=== PATIENT | male | born 1965 | race Caucasian/White ===

== ENCOUNTER 2019-11-09 18:28 | Emergency (ER) | payer SELFPAY ==
[~2019-11-09] VITALS: Ht 170.1 cm; Wt 61.7 kg
[2019-11-09 18:34] VITALS: BP 134/88
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
[2019-11-09] MEDS ORDERED: DICL75TA2 PO (18:58)
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
--- OUTSIDE RECORDS SUMMARY | 2019-11-10 00:19 | XMS REPORT | Continuity of Care Document ---
Author Organization Unknown Address Unknown Phone Unavailable Allergies Active Description Code Type Severity Reaction Onset Reported/Identified Relationship to Patient Clinical Status Yes Penicillins [id number] Drug Aller gy Unknown N/A 11/09/2019 Medications There is no data. Problems There is no data. Procedures There is no data. Results There is no data. Encounters ACCT No. Visit Date/Time Discharge Status Pt. Type Provider Facility Loc./Unit Complaint [id number] 11/09/2019 18:29:00 020 19:10:00 DIS Emergency YONI NORTON, DAVID Wol[facility] ER FS FELL,WRIST INJ
== END 2019-11-09 19:10 | disposition home or self-care (01) ==
LOC: ER FS 18:29
DX: S52.502A Unspecified fracture of the lower end of left radius, initial encounter for closed fracture (principal); Z88.0 Allergy status to penicillin; V18.4XXA Pedal cycle driver injured in noncollision transport accident in traffic accident, initial encounter
CPT/HCPCS: 29125; 73110

== ENCOUNTER → 2019-11-21 | Outpatient (CLI) | payer SELFPAY ==
[~2019-11-21] MED LIST: DICL75TA2 PO
--- NOTE | 2019-11-21 10:58 | Diagnostic Imaging Report ---
INDICATION: Follow-up left radius fracture. TIME OF EXAM: 10:47 a.m. COMPARISON: Correlation is made with prior radiograph from 11/09/2019. FINDINGS: Overlying fiberglass cast material obscures bone detail. Fracture of the distal radius with intra-articular extension is again noted. Fracture lines do remain probably visible, although study is compromised due to overlying cast material. Alignment appears to be anatomic. The distal ulna is obscured. Carpus and metacarpals are intact. IMPRESSION: Distal radius intra-articular fracture. The fracture line does remain clearly visible but alignment is anatomic. Dictated by: Dictated on workstation # [id number]
== END ==
LOC: RAD FS 10:38
PROVIDERS: ATTEND Nurse Practitioner
DX: S52.572D Other intraarticular fracture of lower end of left radius, subsequent encounter for closed fracture with routine healing (principal)
CPT/HCPCS: 73110

== ENCOUNTER → 2019-12-06 | Outpatient (CLI) | payer SELFPAY ==
--- NOTE | 2019-12-06 14:55 | Diagnostic Imaging Report ---
INDICATION: Fracture, followup. TECHNIQUE: Three views of the left wrist were performed. CORRELATION STUDY: 11/21/2019 and 11/09/2019. FINDINGS: Cast material has been removed. The comminuted impacted intraarticular distal left radius fracture is noted. Some outward displacement of the major fracture lines is noted. The overall alignment is generally stable. Fracture lines, however, are still well visualized with very little (if any) interval healing from the baseline study. The distal ulna fracture does appear to be at least partially healed. The carpal bones are otherwise unremarkable but with mild degenerative change present. IMPRESSION: 1. Very little (if any) interval healing about the intraarticular comminuted impacted distal left radius fracture. Fracture lines are still well visualized. 2. Some blurring of the previously noted nondisplaced distal ulna fracture. Dictated by: Dictated on workstation # [id number]
== END ==
LOC: RAD FS 14:10
PROVIDERS: ATTEND Nurse Practitioner
DX: S52.572D Other intraarticular fracture of lower end of left radius, subsequent encounter for closed fracture with routine healing (principal); X58.XXXD Exposure to other specified factors, subsequent encounter
CPT/HCPCS: 73110

== ENCOUNTER → 2019-12-20 | Outpatient (CLI) | payer SELFPAY ==
--- NOTE | 2019-12-20 15:34 | Diagnostic Imaging Report ---
INDICATION: Follow-up fracture. COMPARISON: 12/06/2019. FINDINGS: Frontal and lateral radiographic views of the left wrist were obtained status post placement of radiopaque cast material. As result, there is mild obscuration of underlying osseous structures. Nonacute comminuted fracture of the distal radius is again identified. There may be some early sclerotic healing about the fracture sites. Note is made of mild widened appearance of the scapholunate joint space. No unexpected radiopaque foreign bodies are seen. Joint spaces are otherwise maintained. IMPRESSION: 1. Redemonstration of distal ulnar fracture as above. 2. Slight widened appearance of the scapholunate joint space suspicious for underlying ligamentous injury. Dictated by: Dictated on workstation # [id number]
== END ==
LOC: RAD FS 14:48
PROVIDERS: ATTEND Nurse Practitioner
DX: S52.572D Other intraarticular fracture of lower end of left radius, subsequent encounter for closed fracture with routine healing (principal); X58.XXXD Exposure to other specified factors, subsequent encounter
CPT/HCPCS: 73100

== ENCOUNTER → 2020-01-17 | Outpatient (CLI) | payer SELFPAY ==
--- NOTE | 2020-01-17 15:00 | Diagnostic Imaging Report ---
INDICATION: Fracture follow-up. COMPARISON: 12/20/2019. FINDINGS: Three radiographic views of the left wrist were obtained. There has been interval removal of previously placed radiopaque cast material. Nonacute nondisplaced intra-articular fracture of the distal radius is again identified. Fracture line remains conspicuous. There is no significant bridging callus formation or periosteal reaction. No unexpected radiopaque foreign bodies are seen. Joint spaces are maintained. IMPRESSION: 1. Redemonstration of distal radius fracture as described above. Dictated by: Dictated on workstation # [id number]
== END ==
LOC: RAD FS 14:29
PROVIDERS: ATTEND Nurse Practitioner
DX: S52.572D Other intraarticular fracture of lower end of left radius, subsequent encounter for closed fracture with routine healing (principal)
CPT/HCPCS: 73110

== ENCOUNTER 2020-12-30 17:18 | Emergency (ER) | payer SELFPAY ==
[~2020-12-30] VITALS: Ht 170.2 cm; Wt 61.2 kg
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
[2020-12-30] MEDS ORDERED: fentaNYL INJ 100 MCG/2 ML AMP IVP STA (17:23)
[2020-12-30] MEDS ORDERED: IOHEXOL 350 MG/ML 100 ML (OMNIPAQUE 350) VIAL IV ONE (17:45)
[2020-12-30] MEDS ORDERED: HOLD METFORMIN - RECEIVED CONTRAST 20 ML VIAL IV SCH (17:45)
[2020-12-30] MEDS ORDERED: NS 100 ML (IVPB) BAG IV ONE (17:45)
[2020-12-30] MEDS ORDERED: CATHETER FLUSH 10 ML SYR IV PRN (17:45)
[2020-12-30 17:53] LABS: HEMATOCRIT 35 % (40-54); HEMOGLOBIN 11.9 G/DL (13.3-17.7); MEAN CORPUSCULAR HEMOGLOBIN 33 PG (25-34); MEAN CORPUSCULAR HGB CONC 34 G/DL (32-36); MEAN CORPUSCULAR VOLUME 95 FL (80-99); MEAN PLATELET VOLUME 9.9 FL (7.4-10.4); PLATELET COUNT 263 10^3/uL (130-400); WHITE BLOOD COUNT 8.2 10^3/uL (4.3-11.0)
[2020-12-30 18:12] LABS: CALCIUM 8.5 MG/DL (8.5-10.1); CREATININE SERUM 1.05 MG/DL (0.60-1.30)
--- NOTE | 2020-12-30 18:33 | Diagnostic Imaging Report ---
EXAMINATION: Pelvis, single view. Right hip, 2 additional views. COMPARISON: None. HISTORY: 55-year-old male, injury. Pelvic and hip pain. FINDINGS: There are high attenuation nodular foci projecting over the midline lower abdomen and pelvis on the initial view which may be external to the patient. This is not present on subsequent imaging. The right hip is not dislocated. There is no joint space loss of the right hip. There is no identified acute fracture. The left hip is not obviously dislocated. There are disc degenerative changes at L4-L5 and L5-S1. IMPRESSION: 1. No identified acute bony abnormality of the pelvis or right hip. 2. Degenerative changes of the lower lumbar spine. Dictated by: Dictated on workstation # [id number]
--- NOTE | 2020-12-30 18:59 | Diagnostic Imaging Report ---
Exam: CT angiography pelvis with intravenous contrast. Date: December 30, 2020. Indication: 55-year-old male, right hip and inguinal pain. Comparison: Radiographs December 30, 2020. Findings: The right common iliac artery is patent. The right external iliac artery is patent. The right common femoral artery is patent. The right superficial femoral artery is patent. The right deep femoral artery is patent. There is extensive abnormal attenuation in the right inguinal region and along the course of the right external iliac artery in particular as well as the right anterior and medial thigh most likely relating to extensive hematoma. There is a contrast opacified vessel within the hematoma in the right inguinal region on axial image 76 which is anterior to the level of the right, and femoral artery and is concerning for active extravasation of contrast. There is mass effect on the urinary bladder relating to the hematoma. There is no identified acute fracture or abnormal bone alignment. There are advanced disc degenerative changes at L4-L5 and L5-S1. Impression: 1. Large ill-defined hematoma centered along the distribution of the right external iliac artery, right inguinal region, and right anterior and medial thigh. There is a contrast opacified vessel anterior to the right common femoral artery and right inguinal region concerning for active extravasation of contrast. No acute osseous abnormality. Dictated by: Dictated on workstation # [id number]
[2020-12-30 20:16] VITALS: BP 132/68
== END 2020-12-30 20:16 | disposition short-term general hospital (02) ==
LOC: EDUNIT# 17:18 → ER FS 17:20
DX: S70.11XA Contusion of right thigh, initial encounter (principal); S75.9 Injury of unspecified blood vessel at hip and thigh level; I10 Essential (primary) hypertension; V19.9XXA Pedal cyclist (driver) (passenger) injured in unspecified traffic accident, initial encounter
CPT/HCPCS: 36415; 72191; 73502; 80048; 85027; 99291

== ENCOUNTER 2021-01-22 18:35 | Inpatient (IN) | payer SELFPAY ==
[~2021-01-22] VITALS: Ht 170.1 cm; Wt 63.5 kg
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
[2021-01-22] MEDS ORDERED: CATHETER FLUSH 10 ML SYR IV PRN (19:00)
[2021-01-22] MEDS ORDERED: NS 100 ML (IVPB) BAG IV ONE (19:00)
[2021-01-22] MEDS ORDERED: HOLD METFORMIN - RECEIVED CONTRAST 20 ML VIAL IV SCH (19:00)
[2021-01-22] MEDS ORDERED: IOHEXOL 350 MG/ML 100 ML (OMNIPAQUE 350) VIAL IV ONE (19:00)
[2021-01-22 19:01] LABS: BASOPHILS % (AUTO) 0 % (0-10); EOSINOPHILS % (AUTO) 0 % (0-10); HEMATOCRIT 43 % (40-54); LYMPHOCYTES % (AUTO) 10 % (12-44); MEAN CORPUSCULAR HEMOGLOBIN 33 PG (25-34); MEAN CORPUSCULAR HGB CONC 35 G/DL (32-36); MEAN CORPUSCULAR VOLUME 95 FL (80-99); MEAN PLATELET VOLUME 9.3 FL (7.4-10.4); MONOCYTES % (AUTO) 8 % (0-12); NEUTROPHILS % (AUTO) 82 % (42-75); PLATELET COUNT 402 10^3/uL (130-400); WHITE BLOOD COUNT 14.7 10^3/uL (4.3-11.0)
[2021-01-22 19:02] LABS: BASOPHILS # (AUTO) 0.1 10^3/uL (0.0-0.1); LYMPHOCYTES # (AUTO) 1.4 X 10^3 (1.0-4.0); MONOCYTES # (AUTO) 1.1 X 10^3 (0.0-1.0)
[2021-01-22 19:04] LABS: BILIRUBIN,URINE NEGATIVE (NEGATIVE); CLARITY,URINE CLEAR; COLOR,URINE YELLOW; GLUCOSE, URINE (UA) NEGATIVE (NEGATIVE); KETONES,URINE NEGATIVE (NEGATIVE); NITRITE,URINE NEGATIVE (NEGATIVE); PROTEIN,URINE NEGATIVE (NEGATIVE)
[2021-01-22 19:05] LABS: BACTERIA,URINE NEGATIVE /HPF; LEUKOCYTE ESTERASE ,URINE NEGATIVE (NEGATIVE); SQUAMOUS EPITHELIAL CELL,UR 0-2 /HPF; WBC,URINE 0-2 /HPF
[2021-01-22 19:13] LABS: ALBUMIN 4.4 GM/DL (3.2-4.5); BILIRUBIN,TOTAL 0.7 MG/DL (0.1-1.0); CALCIUM 9.9 MG/DL (8.5-10.1); CREATININE SERUM 0.94 MG/DL (0.60-1.30); POTASSIUM 4.6 MMOL/L (3.6-5.0); TOTAL PROTEIN 7.8 GM/DL (6.4-8.2)
--- NOTE | 2021-01-22 19:29 | Diagnostic Imaging Report ---
PROCEDURE: CT abdomen and pelvis with contrast. TECHNIQUE: Multiple contiguous axial images were obtained through the abdomen and pelvis after administration of intravenous contrast. Auto Exposure Controls were utilized during the CT exam to meet ALARA standards for radiation dose reduction. All CT scans use one or more of the following dose optimizing techniques: automated exposure control, MA and/or KvP adjustment based on patient size and exam type or iterative reconstruction. INDICATION: Left lower quadrant pain. The lung bases are clear. There is an area of ill-defined low density in the inferior right lobe of the liver approximately 13 mm in size, indeterminate. Gallbladder is unremarkable. There is no biliary duct dilatation. Pancreas and spleen are unremarkable. No adrenal mass is detected. Kidneys are unremarkable. Aorta is nonaneurysmal. Bowel loops are normal in caliber. There is significant wall thickening and surrounding inflammation near the junction of the descending colon and sigmoid. Features are consistent with either nonspecific colitis or perhaps diverticulitis. There are small gas bubbles which may be extraluminal at the level of the distal descending colon and an area of microperforation cannot be excluded. There is no fluid collection or bowel obstruction seen. There is moderate stool in the colon and rectum. Small bowel is normal in caliber. Bladder and prostate are unremarkable. There is a fluid collection in the right groin at the level of the right common femoral artery measuring approximately 7.7 x 2.3 cm. This is consistent with a seroma from patient's prior right groin hemorrhage in December. Hematoma previously noted has nearly completely resolved. Bony structures are nonacute. IMPRESSION: 1. Findings consistent with nonspecific colitis/diverticulitis in the left lower quadrant with probable microperforation. No abscess formation or bowel obstruction is seen. 2. Significant improvement in previously noted right groin and retroperitoneal hemorrhage in December. There is probable seroma now noted in the right groin. Dictated by: Dictated on workstation # [id number]
[2021-01-22] MEDS ORDERED: metroNIDAZOLE 500MG/100ML IVPB 100 ML IV ONE (19:45)
[2021-01-22] MEDS ORDERED: NS IV 1000 ML 1,000 ML IV SCH (19:45)
[2021-01-22] MEDS ORDERED: morphine INJ 10 MG/ML 1ML (SYR OR VIAL) IVP STA (20:53)
[2021-01-22] MEDS ORDERED: ONDANSETRON 4 MG/2 ML (SDV) Z0FRAN IVP ONE (21:00)
[2021-01-22 21:11] LABS: AMPHETAMINE SCREEN, URINE POSITIVE (NEGATIVE); BARBITURATE SCREEN URINE NEGATIVE (NEGATIVE); BENZODIAZEPINES SCREEN URINE NEGATIVE (NEGATIVE); CANNABINOID SCREEN, URINE POSITIVE (NEGATIVE); COCAINE SCREEN URINE NEGATIVE (NEGATIVE); METHADONE STAT NEGATIVE (NEGATIVE); METHAMPHETAMINE SCREEN URINE S POSITIVE (NEGATIVE); OPIATE SCREEN URINE POSITIVE (NEGATIVE); OXYCODONE STAT NEGATIVE (NEGATIVE); PROPOXYPHENE STAT NEGATIVE (NEGATIVE); TRICYCLIC ANTIDEPRESSANTS SCRE NEGATIVE (NEGATIVE)
[2021-01-22 22:00] VITALS: BP 161/98
[2021-01-22] MEDS: NS IV 1000 ML 1,000 ML IV SCH (23:23)
[2021-01-23] VITALS: BP 156/99
[2021-01-23] MEDS: morphine INJ 4 MG/ML 1 ML (VIAL/SYRINGE) IVP PRN ×4 (01:30→23:34)
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
--- OUTSIDE RECORDS SUMMARY | 2021-01-23 02:19 | XMS REPORT | Encounter Summary ---
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 [facility] MCV 95.4 80 - 100 FL [facility] MCH 33.8 26 - 34 PG [facility] MCHC 35.4 32.0 - 36.0 G/DL [facility] RDW 12.8 11 - 15 % [facility] Platelet Count 221 150 - 400 K/UL [facility] MPV 8.2 7 - 11 FL [facility] Specimen Blood Performing Organization Address City/[facility] P gianni Number [facility] [address] [place] [address] documented in this encounter Visit Diagnoses Diagnosis Pelvic hematoma, male - Primary 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 Arterial hemorrhage Closed fracture of left hand, initial e ncounter documented in this encounter Admitting Diagnoses Diagnosis Pelvic hematoma, male 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 12/31/2020 9:41 AM CDT 40 mg atorvastatin (LIPITOR) tablet 40 mg Given 40 mg, Oral, DAILY, First dose on Thu12/31/20 at 0900, Until Discontinued 12/31/2020 9:41 AM CDT 40 mg citalopram (CeleXA) tablet 40 mg Given 40 mg, Oral, DAILY, First dose on Thu12/31/20 at 0900, Until Discontinued 12/31/2020 9:44 AM CDT 100 mg docusate (COLACE) capsule 100 mg Given 100 mg, Oral, TWICE DAILY, First dose o n Thu12/31/20 at 0915, Until Discontinued , Hold for loose stools enoxaparin (LOVENOX) syringe 40 mg 40 mg, Subcutaneous, DAILY, First dose on Thu12/31/20 at 2100, Until Discontinued, For patients undergoing surgery: Consult physician in advance - - enoxaparin is an anticoagulant and may need to be held for 12hr prior to surgery or invasive procedures. NOTE: This is a HIGH ALERT Medication. 12/31/2020 1:26 AM CDT 10 mg oxyCODONE (ROXICODONE) tablet 5-10 mg Given 5-10 mg, Oral, EVERY 4 HOURS PRN, Starting on Thu12/31/20 at 0106, Until Thu12/31/20 at 1702, Pain PO polyethylene glycol 3350 (MIRALAX) packet 17 g 17 g (1 packet), Oral, DAILY, First dos e on Thu12/31/20 at 1015, Until Discontinued, 8.5 GRAMS = 0.5 PACKET 17 GRAMS = 1 PACKET 34 GRAMS = 2 PACKETS 12/31/2020 5:57 AM CDT 30 mEq potassium chloride SR (K-DUR) tablet 30 Given mEq 30 mEq, Oral, ONCE, 1 dose, On Thu12/31/20 at 0515, - Tablet may be dispersed in water. Place tab in 30 mL of water for 40-60 seconds. - Gently swirl until fully dispersed. If particles remain after admin, add small amount of water and admin remaining content. - DO NOT CRUSH. Tablet may be split in half. Give with meal or full glass of water documented in this encounter Discontinued Medications Start Date End Date Medication Sig Discontinue Reason 12/31/2020 12/31/2020 oxyCODONE (ROXICODONE) 5 Take one mg tablet tablet by mouth every 6 hours as needed for up to 5 days documented as of this encounter Historical Medications * This list may reflect changes made after this encounter. Start Date End Date Medication Sig Dispensed Refills traZODone (DESYREL) 150 Take 150 mg 0 mg tabletIndications: by mouth at insomnia associated with bedtime as depression needed. Indications: insomnia associated with depression atorvastatin (LIPITOR) 40 Take 40 mg by 0 mg tabletIndications: mouth daily. hypertriglyceridemia Indications: high amount of triglyceride in the blood citalopram (CELEXA) 40 mg Take 40 mg by 0 tabletIndications: mouth daily. anxiety with depression Indications: anxiousness associated with depression added in this encounter Active and Recently Administered Medications Times are shown in CDT. 12/30/2020 12/31/2020 Medication Order 12/29/2020 0126 (Given - Provider: Summer Schwarz RN)0940 (Given - Provider: Kelsie Hussein RN)1400 (Due) acetaminophen (TYLENOL) tablet 650 mg 650 mg, Oral, EVERY 6 HOURS, First dos e on Thu12/31/20 at 0200, Until Discontinued, TOTAL ACETAMINOPHEN DOSE NOT TO EXCEED 4GM DAILY 940 (Given - Provider: Kelsie Hussein, RAY ) atorvastatin (LIPITOR) tablet 40 mg 40 mg, Oral, DAILY, First dose on Thu12/31/20 at 0900, Until Discontinued 940 (Given - Provider: Kelsie Hussein, RAY ) citalopram (CeleXA) tablet 40 mg 40 mg, Oral, DAILY, First dose on Thu12/31/20 at 0900, Until Discontinued 44 (Given - Provider: Kelsie Hussein, RAY ) docusate (COLACE) capsule 100 mg 100 mg, Oral, TWICE DAILY, First dose o n Thu12/31/20 at 0915, Until Discontinued , Hold for loose stools enoxaparin (LOVENOX) syringe 40 mg 40 mg, Subcutaneous, DAILY, First dose on Thu12/31/20 at 2100, Until Discontinued, For patients undergoing surgery: Consult physician in advance - - enoxaparin is an anticoagulant and may need to be held for 12hr prior to surgery or invasive procedures. NOTE: This is a HIGH ALERT Medication. 0947 (Med Not Given - Provider: Kelsie vick RN - Reason: Patient Refused) polyethylene glycol 3350 (MIRALAX) packet 17 g 17 g (1 packet), Oral, DAILY, First dos e on Thu12/31/20 at 1015, Until Discontinued, 8.5 GRAMS = 0.5 PACKET 17 GRAMS = 1 PACKET 34 GRAMS = 2 PACKETS 0557 (Given - Provider: Kevin Navarro) potassium chloride SR (K-DUR) tablet 30 mEq (COMPLETED) 30 mEq, Oral, ONCE, 1 dose, Thu12/31/20 at 0515, - Tablet may be dispersed in water. Place tab in 30 mL of water for 40-60 seconds. - Gently swirl until fully dispersed. If particles remain after admin, add small amount of water and admin remaining content. - DO NOT CRUSH. Tablet may be split in half. Give with meal or full glass of water 12/30/2020 12/31/2020 Medication Order 12/29/2020 albuterol sulfate (PROAIR HFA) inhaler 2 puff 2 puff, Inhalation, RT EVERY 4 HOURS PRN, Starting Thu12/31/20 at 0029, Unti l Thu12/31/20 at 1702, RT PROTOCOL, When administered by RT, will be per RT policy. ondansetron (ZOFRAN) injection 4-8 mg 4-8 mg, Intravenous, EVERY 6 HOURS PRN , Starting 12/30/20 at 2152, Until Thu12/31/20 at 1702, Nausea/Vomiting Injectable 0125 (Cabinet Pull - Provider: Summer doyle RN)0126 (Given - Provider: Summer Schwarz, RAY) oxyCODONE (ROXICODONE) tablet 5-10 mg 5-10 mg, Oral, EVERY 4 HOURS PRN, Starting Thu12/31/20 at 0106, Until Thu12/31/20 at 1702, Pain PO documented in this encounter Orders First Ordered Date Medications Ordered That Might Not Have Count Last Ordered Date Been Administered albuterol sulfate (PROAIR HFA) inhaler 2 1 12/31/2020 puff enoxaparin (LOVENOX) syringe 40 mg 1 polyethylene glycol 3350 (MIRALAX) 2 packet 17 g senna (SENOKOT) tablet 1 tablet 1 2020 fentaNYL citrate PF (SUBLIMAZE) 1 2020 injection 25-50 mcg ondansetron (ZOFRAN) injection 4-8 mg 1 12/30/2020 First Ordered Date Immunization/Injection Count Last Ordered Da te COVID-19 (MODERNA) VACCINE 2ND DOSE APPT 1 12/31/2020 First Ordered Date Diet Count Last Ordered Date DISCHARGE DIET REGULAR 1 12/31/2020 First Ordered Date Nursing Count Last Ordered Date DISCHARGE ACTIVITY NORMAL 1 12/31/2020 DISCHARGE CONTACT 1 12/31/2020 DISCHARGE EDUCATION 1 12/31/2020 DISCHARGE SIGNS/SYMPTOMS 1 12/31/2020 First Ordered Date Consult Count Last Ordered Date CONSULT PLASTIC SURGERY PHYSICIAN 1 12/07 First Ordered Date OT Count Last Ordered Date OT CONSULT OCCUPATIONAL THERAPY 1 2020 First Ordered Date PT Count Last Ordered Date PT CONSULT PHYSICAL THERAPY 1 12/30/2020 First Ordered Date Admission Count Last Ordered Date ADMIT TO INPATIENT (NO BED REQUEST) 1 First Ordered Date Transfer Count Last Ordered Date TRANSFER PATIENT (BED REQUEST) 1 021 First Ordered Date Discharge Count Last Ordered Date DISCHARGE PATIENT NOW 1 12/31/2020 First Ordered Date Equipment Count Last Ordered Date COMPRESSION DEVICE, LEG 1 12/30/2020 PUMP IV CONTROL UNIT W/MODULES 1 021 First Ordered Date Vital Signs Count Last Ordered Date VITAL SIGNS 1 12/30/2020 First Ordered Date Activity Count Last Ordered Date MOBILITY 1 12/30/2020 First Ordered Date Discharge Contingent Count Last Ordered Date DISCHARGE PATIENT CONTINGENT 1 First Ordered Date Order Set Communication Count Last Ordered D ate VTE DRUG PROPHYLAXIS CONTRAINDICATED- 1 12/30/2020 ADMIT First Ordered Date Appointment Request Count Last Ordered Date APPOINTMENT REQUEST: PLASTIC SURG 12/07 First Ordered Date Intake & Output Count Last Ordered Date INTAKE AND OUTPUT 1 12/30/[address] & Maintain Count Last Ordered Date PLACE AND MAINTAIN SCD 1 12/30/2020 First Ordered Date ADT Patient Update Count Last Ordered Date CHANGE SERVICE / LEVEL OF CARE (NO BED 1 12/31/2020 REQUEST) documented in this encounter Additional Health Concerns Assessment Noted Time A fall risk assessment has been completed for the pat ient 12/31/2020 8:00 AM CDT documented as of this encounter
--- OUTSIDE RECORDS SUMMARY | 2021-01-23 02:19 | XMS REPORT | Encounter Summary ---
Author Author [facility] Organization [facility] Address Unknown Phone Unavailable Care Team Providers Care Petrographer Name Role Phone PCP Unavailable Encounter Details Care Team Description Date Type Department Zachary Alcocer MD [address] [place] [address] 12/30/2020 Hospital Imaging, CT: Main C ampus, Encounter Main [facility] [address] [facility] [address] [place] [address] Social History Date Tobacco Use Types Packs/Day Years Used Never Assessed Sex Assigned at Date Recorded Not on file Date Recorded COVID-19 Exposure Response 12/30/2020 7:32 PM CDT In the last month, have you been in contact with No / Unsure someone who was confirmed or suspected to have Coronavirus / COVID-19? documented as of this encounter Medications at Time of Discharge [...] 5 days documented as of this encounter Discharge Disposition Code Departure Means Destination Disposition Home Home or Self Care documented in this encounter Plan of Treatment Not on filedocumented as of this encounter Goals Goal Patient Associated Recent Progress Patient-Stat Aut hor Goal Type Problems ed? Resume normal activities Hospital On track (12/31/2020 Em Schwarz, 12:34 AM CDT) RAY Wheeler documented as of this encounter Procedures Comments Procedure Name Priority Date/Time Associated Diag nosis CTA ABD AORTA & COURTNEY RUN STAT 12/31/2020 WO/W 12:05 AM CDT documented in this encounter Visit Diagnoses Not on filedocumented in this encounter Administered Medications Action Date Dose Rate Site Medication Order MAR Action 12/31/2020 12:15 AM CDT 150 mL iohexoL (OMNIPAQUE-350) 350 mg/mL Given injection 150 mL 150 mL, Intravenous, ONCE, 1 dose, On 12/31/20 at 0015, NOTE: This is a HIGH ALERT Medication. 12/31/2020 12:15 AM CDT 50 mL sodium chloride PF 0.9% injection 50 mL Given 50 mL, Intravenous, ONCE, 1 dose, On Mo n 12/31/20 at 0015, Intra-procedure (IR) documented in this encounter Additional Health Concerns Assessment Noted Time A fall risk assessment has been completed for the pat ient 12/30/2020 10:00 PM CDT documented as of this encounter
--- OUTSIDE RECORDS SUMMARY | 2021-01-23 02:19 | XMS REPORT | Encounter Summary ---
Author Author [facility] Organization [facility] Address Unknown Phone Unavailable Care Team Providers Care Animal Pathology Teacher Name Role Phone PCP Unavailable Encounter Details Care Team Description Date Type Department 12/30/2020 Travel Social History Date Tobacco Use Types Packs/Day Years Used Never Assessed Sex Assigned at Date Recorded Not on file Date Recorded COVID-19 Exposure Response 12/30/2020 7:32 PM CDT In the last month, have you been in contact with No / Unsure someone who was confirmed or suspected to have Coronavirus / COVID-19? documented as of this encounter Plan of Treatment Not on filedocumented as of this encounter Goals Goal Patient Associated Recent Progress Patient-Stat Aut hor Goal Type Problems ed? Resume normal activities Hospital On track (12/31/2020 No Schwarz, 12:34 AM CDT) RAY Wheeler documented as of this encounter Visit Diagnoses Not on filedocumented in this encounter Additional Health Concerns Assessment Noted Time A fall risk assessment has been completed for the pat ient 12/30/2020 10:00 PM CDT documented as of this encounter
--- OUTSIDE RECORDS SUMMARY | 2021-01-23 04:12 | XMS REPORT | Encounter Summary ---
Author Author [facility] Organization [facility] Address Unknown Phone Unavailable Care Team Providers Care Chief Medical Technologist Name Role Phone PCP Unavailable Encounter Details Care Team Description Date Type Department Zachary Alcocer MD [address] [place] [address] 12/30/2020 Hospital Imaging, CT: Main C ampus, Encounter Main Hospital [address] [facility] [address] [place] [address] Social History Date Tobacco Use [...]
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
[2021-01-23 04:36] VITALS: BP 157/93
[2021-01-23 05:08] LABS: BASOPHILS % (AUTO) 0 % (0-10); EOSINOPHILS # (AUTO) 0.1 10^3/uL (0.0-0.3); EOSINOPHILS % (AUTO) 1 % (0-10); HEMATOCRIT 40 % (40-54); HEMOGLOBIN 13.7 g/dL (13.3-17.7); LYMPHOCYTES # (AUTO) 1.3 10^3/uL (1.0-4.0); LYMPHOCYTES % (AUTO) 11 % (12-44); MEAN CORPUSCULAR HEMOGLOBIN 34 pg (25-34); MEAN CORPUSCULAR HGB CONC 35 g/dL (32-36); MEAN CORPUSCULAR VOLUME 98 fL (80-99); MEAN PLATELET VOLUME 9.5 fL (9.0-12.2); MONOCYTES # (AUTO) 1.2 10^3/uL (0.0-1.0); MONOCYTES % (AUTO) 10 % (0-12); NEUTROPHILS # (AUTO) 9.2 10^3/uL (1.8-7.8); NEUTROPHILS % (AUTO) 77 % (42-75); PLATELET COUNT 319 10^3/uL (130-400); WHITE BLOOD COUNT 11.9 10^3/uL (4.3-11.0)
[2021-01-23 05:26] LABS: POTASSIUM 4.1 MMOL/L (3.6-5.0)
[2021-01-23 05:27] LABS: CALCIUM 8.4 MG/DL (8.5-10.1)
[2021-01-23 05:31] LABS: CREATININE SERUM 0.81 MG/DL (0.60-1.30)
[2021-01-23] MEDS: NS IV 1000 ML 1,000 ML IV SCH ×4 (07:22→23:35)
[2021-01-23 08:00] VITALS: BP 158/92
[2021-01-23] MEDS: metroNIDAZOLE 500 MG/100 ML IVPB (PRE-MIX) IV SCH ×2 (08:38→20:58)
[2021-01-23 12:00] VITALS: BP 154/90
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
[2021-01-23 16:00] VITALS: BP 150/88
[2021-01-23] MEDS: lisINopril 10 MG (PRINIVIL) TABLET PO SCH (16:33)
[2021-01-23] MEDS: ENOXAPARIN 40 MG/0.4 ML (LOVENOX) SYR SQ SCH (16:33)
[2021-01-23] MEDS: ONDANSETRON 4 MG/2 ML (SDV) Z0FRAN IVP PRN (16:41)
[2021-01-23] MEDS: ACETAMINOPHEN 500 MG TAB (TYLENOL) PO PRN (16:41)
[2021-01-23 20:00] VITALS: BP 154/88
[2021-01-23] MEDS: AtorvaSTATin TABLET 10 MG TABLET PO SCH (20:59)
[2021-01-23] MEDS: LEVOFLOXACIN 750 MG/D5W 150 ML PRE-MIX IV SCH (20:59)
[2021-01-24] VITALS (7 sets, daily range): BP systolic 122–167; BP diastolic 77–96
[2021-01-24] MEDS: ONDANSETRON 4 MG/2 ML (SDV) Z0FRAN IVP PRN (02:35)
[2021-01-24] MEDS: ACETAMINOPHEN 500 MG TAB (TYLENOL) PO PRN (02:35)
[2021-01-24 06:31] LABS: HEMATOCRIT 40 % (40-54); HEMOGLOBIN 13.6 g/dL (13.3-17.7); MEAN CORPUSCULAR HEMOGLOBIN 33 pg (25-34); MEAN CORPUSCULAR HGB CONC 34 g/dL (32-36); MEAN CORPUSCULAR VOLUME 98 fL (80-99); MEAN PLATELET VOLUME 9.8 fL (9.0-12.2); PLATELET COUNT 306 10^3/uL (130-400); WHITE BLOOD COUNT 5.6 10^3/uL (4.3-11.0)
[2021-01-24 06:40] LABS: CALCIUM 9.2 MG/DL (8.5-10.1)
[2021-01-24 06:44] LABS: CREATININE SERUM 0.84 MG/DL (0.60-1.30)
[2021-01-24] MEDS: lisINopril 10 MG (PRINIVIL) TABLET PO SCH (09:28)
[2021-01-24] MEDS: metroNIDAZOLE 500 MG/100 ML IVPB (PRE-MIX) IV SCH ×2 (09:28→20:30)
[2021-01-24] MEDS: NS IV 1000 ML 1,000 ML IV SCH ×3 (09:28→21:59)
--- NOTE | 2021-01-24 16:06 | Progress Note ---
Subjective Subjective/Events-last exam Afebrile, states he is continuing to feel better. Denies concerns. Objective Exam Last Set of Vital Signs Vital Signs Date Time Temp Pulse Resp B/P (MAP) Pulse Ox O2 Delivery O2 Flow Rate FiO2 01/24/21 12:00 36.6 60 20 167/92 (117) 99 Room Air Capillary Refill : Less Than 3 Seconds I&O Intake and Output 01/24/21 00:00 Intake Total 2440 ml Balance 2440 ml Intake Oral 1240 ml IV Total 1200 ml # Voids 10 General: Alert, No Acute Distress Lungs: Clear to Auscultation, Normal Air Movement Heart: Regular Rate, No Murmurs Abdomen: Normal Bowel Sounds, Soft, Other (point ttp LLQ) Extremities: No Edema Psych/Mental Status: Mood NL Results/Procedures Lab Laboratory Tests 01/24/21 05:22: Sodium Level 137, Potassium Level 4.0, Chloride Level 106, Carbon Dioxide Level 20L, Anion Gap 11, Blood Urea Nitrogen 10, Creatinine 0.84, Estimat Glomerular Filtration Rate 95, BUN/Creatinine Ratio 12, Glucose Level 87, Calcium Level 9.2 01/24/21 05:52: White Blood Count 5.6, Red Blood Count 4.12L, Hemoglobin 13.6, Hematocrit 40, Mean Corpuscular Volume 98, Mean Corpuscular Hemoglobin 33, Mean Corpuscular He moglobin Concent 34, Red Cell Distribution Width 13.4, Platelet Count 306, Mean Platelet Volume 9.8 Assessment/Plan Assessment/Plan Assessment & Plan Diverticulitis w/ microperforation -Treating with Levofloxacin/Dextrose & Metronidazole -WBC down to normal, tolerated liquids yesterday, will advance diet carefully Constipation -No evidence of an obstruction causing the constipation at this point -Likely due to recent use of treatment with opiate pain meds. Leukocytosis -Resolved COPD -Stable w/out supplemental oxygen. Hyperlipidemia -Restart Atorvostatin Hypertension -Restart Lisinopril CT showed small indeterminate area of Inferior right lobe of liver. -Follow up with primary care doctor to have assessed further. Depression -Restart home citalopram INDIGO HILTON MD Jan 24, 2021 16:06
[2021-01-24] MEDS: ENOXAPARIN 40 MG/0.4 ML (LOVENOX) SYR SQ SCH (16:47)
[2021-01-24] MEDS: AtorvaSTATin TABLET 10 MG TABLET PO SCH (20:31)
[2021-01-24] MEDS: LEVOFLOXACIN 750 MG/D5W 150 ML PRE-MIX IV SCH (21:59)
[2021-01-25 03:08] VITALS: BP 135/80
[2021-01-25] MEDS: NS IV 1000 ML 1,000 ML IV SCH (03:11)
[2021-01-25 08:23] VITALS: BP 148/93
[2021-01-25] MEDS: lisINopril 10 MG (PRINIVIL) TABLET PO SCH (08:45)
[2021-01-25] MEDS: metroNIDAZOLE 500 MG/100 ML IVPB (PRE-MIX) IV SCH (08:45)
[2021-01-25 08:52] LABS: HEMATOCRIT 39 % (40-54); HEMOGLOBIN 13.6 g/dL (13.3-17.7); MEAN CORPUSCULAR HEMOGLOBIN 34 pg (25-34); MEAN CORPUSCULAR HGB CONC 35 g/dL (32-36); MEAN CORPUSCULAR VOLUME 97 fL (80-99); MEAN PLATELET VOLUME 9.5 fL (9.0-12.2); PLATELET COUNT 325 10^3/uL (130-400); WHITE BLOOD COUNT 5.9 10^3/uL (4.3-11.0)
[2021-01-25 09:15] LABS: ALBUMIN 3.4 GM/DL (3.2-4.5); POTASSIUM 3.9 MMOL/L (3.6-5.0)
[2021-01-25 09:16] LABS: CALCIUM 8.9 MG/DL (8.5-10.1)
[2021-01-25 09:17] LABS: TOTAL PROTEIN 6.2 GM/DL (6.4-8.2)
[2021-01-25 09:19] LABS: BILIRUBIN,TOTAL 0.5 MG/DL (0.1-1.0)
[2021-01-25 09:21] LABS: CREATININE SERUM 0.82 MG/DL (0.60-1.30)
[2021-01-25] MEDS ORDERED: ATOR10TA66 PO (10:53)
[2021-01-25] MEDS ORDERED: LEVO750T39 PO (10:53)
[2021-01-25] MEDS ORDERED: LISI10TA25 PO (10:53)
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
[2021-01-25 12:12] VITALS: BP 153/91
[2021-01-25 15:47] VITALS: BP 148/84
[2021-01-25 16:29] VITALS: BP 148/84
== END 2021-01-25 16:34 | disposition home or self-care (01) | DRG 392 ==
LOC: EDUNIT# 18:35 → ER FS 18:36 → UNDOADMIN 20:30 → 4TH 20:30
PROVIDERS: ADMIT Family Medicine; ATTEND Family Medicine
DX: K57.20 Diverticulitis of large intestine with perforation and abscess without bleeding (principal); K59.00 Constipation, unspecified; S36.892D Contusion of other intra-abdominal organs, subsequent encounter; D72.829 Elevated white blood cell count, unspecified; J44.9 Chronic obstructive pulmonary disease, unspecified; E78.5 Hyperlipidemia, unspecified; I10 Essential (primary) hypertension; F32.9 Major depressive disorder, single episode, unspecified; F15.90 Other stimulant use, unspecified, uncomplicated; K76.9 Liver disease, unspecified; T40.2X5A Adverse effect of other opioids, initial encounter; F17.210 Nicotine dependence, cigarettes, uncomplicated; V19.9XXD Pedal cyclist (driver) (passenger) injured in unspecified traffic accident, subsequent encounter
CPT/HCPCS: 36415; 74177; 80048; 80053; 80306; 81000; 85025; 85027